=== PATIENT | male | born 1965 | race Caucasian/White ===

== ENCOUNTER 2017-03-13 14:01 | Outpatient (CLI) | payer OTHER ==
--- NOTE | 2017-03-13 16:37 | DIAGNOSTIC IMAGING REPORT ---
PROCEDURE: MRA HEAD WITHOUT CONTRAST INDICATION: ANISHA'S TECHNIQUE: Multiplanar multisequence MRI imaging of the brain without contrast. COMPARISON: None. FINDINGS: No evidence of aneurysm or vascular malformation, tumor stain, or neovascularity. There is no evidence of vasculitis or atherosclerotic disease. The anterior middle and posterior cerebral arteries are normal. IMPRESSION: 1. Normal MRA of the brain.
== END 2017-03-13 23:00 ==
LOC: MRI SRH 14:01
DX: R51 Headache (principal)